=== PATIENT | male | born 1990 | race Hispanic/Latino ===

== ENCOUNTER 2019-10-23 13:09 | Emergency (ER) | payer OTHER, SELFPAY ==
--- NOTE | 2019-10-23 13:29 | ED.EAR ---
HPI - Ear Problem General Chief complaint: Ear Stated complaint: ear pain Time Seen by Provider: 10/23/19 13:29 Source: patient and RN notes reviewed History of Present Illness HPI Narrative: Patient is a 28-year-old male who presents the urgent care with complaints of right ear pain. Patient states the right ear pain started approximately 2 weeks ago in the last few days he is developed a sore throat and some swollen lymph nodes to the right. Patient denies of any known fever, chills, nausea, vomiting. Patient has not used anything [id number] for his symptoms. No other acute complaints. No acute distress noted. Patient read the plan of care. Related Data Allergies Allergy/AdvReac Type Severity Reaction Status Date / Time No Known Allergies Allergy Unknown Unverified 06/24/17 01:06 Review of Systems Review of Systems: Narrative: CONSTITUTIONAL: Denies fever, chills, or sweats. EYES: Denies visual changes, redness, or discharge. ENT: Reports of sore throat, right otalgia and right lymph node swelling CARDIOVASCULAR: Denies chest pain, palpitations, or edema. RESPIRATORY: Denies cough or dyspnea. GASTROINTESTINAL: Denies abdominal pain, nausea, vomiting, or diarrhea. GENITOURINARY: Denies dysuria or hematuria. SKIN: Denies rash or itching. MUSCULOSKELETAL: Denies back pain, joint pain, or myalgia. NEUROLOGIC: Denies headache, numbness, or weakness. All other systems reviewed are negative, except as documented in HPI. PMFSH Comments At the time of my signature, I reviewed and agree with the nursing past medical, surgical, social, and family history. There is no relevant family history pertinent to the patient complaint. Exam Narrative: Exam Narrative: GENERAL: This is a well-nourished, well-developed patient, in no apparent distress. HEAD: normocephalic, atraumatic. EYES: PERRL. Sclera clear/white. Vision is grossly intact. EARS: External ears normal, auditory canals clear and without drainage, mild fluid noted behind the right TM with mild surrounding erythema, left TM normal without perforation. Hearing grossly intact. NOSE: External nose normal with no obvious nasal discharge, nares without redness, no rhinorrhea. THROAT: Mucous membranes moist, moderate erythema noted posterior oropharynx with bilateral exudate and noted tonsil stones to the right. Mild bilateral tonsillar edema NECK: Neck supple, mild right submandibular lymphadenopathy SKIN: warm, intact with no suspicious lesions or rash, good texture and turgor. NEURO: awake, alert, and oriented to person, place and time. There were no obvious focal neurologic abnormalities. EXTREMITIES: No clubbing, cyanosis, or edema. Course Vital Signs Vital signs: Vital Signs Pulse Rate 80 10/23/19 13:31 Respiratory Rate 16 10/23/19 13:31 Blood Pressure 129/63 10/23/19 13:31 Pulse Oximetry 100 10/23/19 13:31 Pulse Rate 80 10/23/19 13:31 Respiratory Rate 16 10/23/19 13:31 Blood Pressure 129/63 10/23/19 13:31 Pulse Oximetry 100 10/23/19 13:31 Reviewed Medical Decision Making MDM Narrative Medical decision making narrative: Reviewed lab results with the patient. He is aware that strep swab was positive. His right ear also does look slightly infected and therefore antibiotics will be dosed to cover both strep and ear infection. Advised the patient to use Tylenol/ibuprofen as needed for fever and pain. Complete oral antibiotic regimen as prescribed. Make sure to eat and drink with the medication. If you have any increase tonsillar swelling, persistent consistent fevers, difficulty breathing or swallowing?go to the emergency room. Follow-up with ENT regarding enlarged tonsils and possible sleep apnea. Follow-up with your PCP within 2 to 5 days or for worsening symptoms or failure to improve. Differential Diagnosis Differential Diagnosis: Pneumonia, Allergic Rhinitis, Upper respiratory cough syndrome, Pharyngitis, Sinusitis, Bronchitis, otitis media
[2019-10-23 13:31] VITALS: BP 129/63; PULSE 80; RESP 16; O2SAT 100
== END 2019-10-23 14:14 | disposition home or self-care (01) ==
PROVIDERS: Emergency Provider Nurse Practitioner Family
DX: H65.91 Unspecified nonsuppurative otitis media, right ear (principal); J02.0 Streptococcal pharyngitis
CPT/HCPCS: 99213; G0463

== ENCOUNTER 2021-11-25 17:54 | Emergency (ER) | payer OTHER, SELFPAY ==
[2021-11-25 18:04] VITALS: BP 140/85; PULSE 86; RESP 16; TEMP 36.3; O2SAT 100
--- NOTE | 2021-11-25 18:11 | ED.EAR ---
HPI - Ear Problem General Chief complaint: Ear Stated complaint: Ear Pain Time Seen by Provider: 11/25/21 18:11 Source: patient, RN notes reviewed and old records reviewed Mode of arrival: ambulatory Limitations: no limitations History of Present Illness HPI Narrative: 31-year-old male presents to the [facility] with complaints of left ear pain for 3 days. Has taken some amoxicillin he picked up this morning. Has been swimming and using Q-tips. MD Complaint: ear pain Location: left ear Related Data Allergies Allergy/AdvReac Type Severity Reaction Status Date / Time No Known Allergies Allergy Unknown Verified 11/25/21 18:05 Review of Systems Review of Systems: All systems reviewed & are unremarkable except as noted in HPI and below Constitutional: Constitutional: Reports no additional constitutional complaints, Denies chills and Denies fever(s) Eyes: Eyes: Reports no additional eye complaints ENT: Reports as per HPI, Denies dysphagia, Reports otalgia, Denies lip swelling, Denies nasal discharge, Denies nose pain, Denies sinus pressure and Denies sore throat Cardiovascular: Cardiovascular: Reports no additional cardiovascular complaints Respiratory: Respiratory: Reports no additional respiratory complaints Gastrointestinal: Gastrointestinal: Reports no additional gastrointestinal complaints Musculoskeletal: Musculoskeletal: Reports no additional musculoskeletal complaints Integumentary/Breasts: Skin/Breast: Reports system reviewed and no additional complaints, except as docu Neurologic: Reports system reviewed and no additional complaints, except as documented Psychiatric: Psychiatric: Reports no additional psychiatric complaints Allergic/Immunologic: Allergic/Immunologic: Reports no additional allergic/immunologic complaints PMFSH Past Medical History Medical History No significant medical problems Surgical History Surgical History (Updated 11/26/21 @ 17:23 by Siobhan Lynch APRN) History of appendectomy No history of previous surgery Social History Social History Smoking status: Current every day smoker Alcohol intake: current Comments At the time of my signature, I reviewed and agree with the nursing past medical, surgical, social, and family history. There is no relevant family history pertinent to the patient complaint. Exam Const: General: healthy appearing, no acute distress and alert Nutritional Appearance: well nourished Orientation/consciousness: patient oriented x3 Limitations: no limitations HENMT: Head: normal to inspection Ears: external ears normal, TM normal on the right, mastoids normal and Abnormal EAC present erythema on the left, edema on the left and EAC tenderness on the left General nose exam: Normal external nose present and Normal nares present Mouth: Yes Normal oral and palatal mucosa present and Yes lip normal Throat: posterior oropharynx normal and uvula midline Eyes: General: appearance normal, both eyes and all related structures Pupils: Equal, round and reactive pupils present Neck: Neck: normal visual inspection, no lymphadenopathy and no meningeal signs Chest: Chest palpation & inspection: normal inspection of the chest Resp: Effort & Inspection: normal respiratory effort and no use of accessory muscles Auscultation: clear to auscultation bilaterally, no crackles, no rales, no rhonchi and no wheezes Cardio: Rate: regular rate Rhythm: regular rhythm Back/Spine/Pelvis: Cervical Spine: normal cervical lordosis Thoracic/Lumbar Spine: thoracic and lumbar spine normal to inspection Skin: General skin exam: normal color Rashes: no rashes Wounds: no wounds Neuro: General: patient oriented x3, moves all extremities, no meningeal signs and no focal motor deficits Cranial nerves: Yes Equal, round and reactive pupils present Speech: normal speech Gait e
== END 2021-11-25 18:25 | disposition home or self-care (01) ==
PROVIDERS: Emergency Provider Nurse Practitioner; PCP Family Medicine
DX: H60.92 Unspecified otitis externa, left ear (principal); F17.200 Nicotine dependence, unspecified, uncomplicated
CPT/HCPCS: 99213; G0463